=== PATIENT | male | born 1950 | race Caucasian/White ===

== ENCOUNTER 2024-11-04 11:27 | Emergency (ER) | payer OTHER ==
[2024-11-04 11:56] LABS: Absolute Eosinophils 0.2 K/uL (0-0.5); Absolute Lymphocytes (CBC) 2.4 K/uL (0.7-4.9); Absolute Monocytes 0.9 K/uL (0.1-1.3); Basophils % 0.6 % (0-1.3); Eosinophils % 2.2 % (0-4.4); Hematocrit 43.8 % (39.6-49.0); Hemoglobin 14.4 g/dL (13.6-17.9); Lymphocytes % 27.8 % (15.3-44.8); MCH 30.1 pg (27.0-35.0); MCHC 32.8 g/dL (32.0-36.0); MCV 91.9 fL (80-100); MPV 7.9 fL (7.6-11.3); Monocytes % 10.8 % (3.3-12.3); Neutrophils % 58.6 % (41.7-73.7); Platelets 267 thou/uL (152-406); RBC Red Blood Cell Count 4.77 M/uL (4.33-5.43); Red Cell Distribution Width 13.7 % (12.1-15.2)
[2024-11-04] MEDS ORDERED: ENOXAPARIN 100 MG/ML SYR SQ ONE (13:56)
[2024-11-04] MEDS ORDERED: dilTIAZem HCL 25 MG/5 ML VIAL IV ONE (13:57)
--- NOTE | 2024-11-04 15:19 | ER ---
Nurse's Notes [facility] Name: Galindo Alfaro Age: 74 yrs Sex: Male : 1950 Arrival Date: 11/04/2024 Time: 11:27 Bed 6 Private MD: Diagnosis: New onset atrial flutter with supraventricular tachycardia Presentation: 11/04 11:31 Chief complaint: [facility] states[facility] Coronavirus screen: Client ss denies travel out of the [place] in the last 14 days. Ebola Screen: Patient denies exposure to infectious person. Patient denies travel to an Ebola-affected area in the 21 days before illness onset. Initial Sepsis Screen: Does the patient meet any 2 criteria? No. Patient's initial sepsis screen is negative. Does the patient have a suspected source of infection? No. Patient's initial sepsis screen is negative. Risk Assessment: Do you want to hurt yourself or someone else? Patient reports no desire to harm self or others. Onset of symptoms is unknown. 11:31 Method Of Arrival: EMS: [facility] 11:31 Acuity: LUKE 2 11:31 Care prior to arrival: IV initiated. 20 GA, in the left wrist. Triage Assessment: 18:26 General: Behavior is calm, cooperative. tm6 Historical: - Allergies: 11:35 citalopram; ss 11:35 GABAPENTIN; ss 11:35 oxybutynin; ss - Home Meds: 11:32 Losartan 50 mg 1 tab PO DAILY [Active]; methocarbamol 500 mg Oral tablet 1 tab 3 times ss per day [Active]; meloxicam 15 mg oral tablet 1 tab daily [Active]; - PMHx: 11:32 Hypertensive disorder; Henriquez's esophagus; prostate CA; Anxiety; Thyroid nodule; ss Multiple nodules of lung; Ventricular tachycardia; - Immunization history:: Flu vaccine is up to date. - Infectious Disease History:: Denies. - Social history:: Smoking status: Patient denies any tobacco usage or history of. Screenin:37 [facility] ED Fall Risk Assessment (Adult) History of falling in the last 3 months, tm6 including since admission No falls in past 3 months (0 pts) Confusion or Disorientation No (0 pts) Intoxicated or Sedated No (0 pts) Impaired Gait No (0 pts) Mobility Assist Device Used No (0 pt) Altered Elimination No (0 pt) Score/Fall Risk Level 0 - 2 = Low Risk Oriented to surroundings, Maintained a safe environment, Educated pt \T\ family on fall prevention, incl call for assistance when getting out of bed. Abuse screen: Denies threats or abuse. Denies injuries from another. Nutritional screening: No deficits noted. Tuberculosis screening: No symptoms or risk factors identified. Assessment: 12:37 General: Appears in no apparent distress. Pain: Denies pain. Neuro: Level of tm6 Consciousness is awake, alert, obeys commands, Oriented to person, place, time, situation. Cardiovascular: Patient's skin is warm and dry. Rhythm is sinus tachycardia. Respiratory: Airway is patent Respiratory effort is even, unlabored, Respiratory pattern is regular, symmetrical. GI: No signs and/or symptoms were reported involving the gastrointestinal system. Abdomen is round non-distended. : No signs and/or symptoms were reported regarding the genitourinary system. EENT: No signs and/or symptoms were reported regarding the EENT system. Derm: No signs and/or symptoms reported regarding the dermatologic system. Musculoskeletal: No signs and/or symptoms reported regarding the musculoskeletal system. 13:32 Reassessment: Patient and/or family updated on plan of care and expected duration. Pain tm6 level reassessed. Patient is alert, oriented x 3, equal unlabored respirations, skin warm/dry/pink. 14:23 Reassessment: Patient and/or family updated on plan of care and expected duration. Pain tm6 level reassessed. Patient is alert, oriented x 3, equal unlabored respirations, skin warm/dry/pink. 15:41 Reassessment: Patient and/or family updated on plan of care and expected duration. Pain tm6 level reassessed. Patient is alert, oriented x 3, equal unlabored respirations, skin warm/dry/pink. 16:11 Reassessment: report called to [place] [facility], Angelina SELLERS. tm6 18:25 Reassessment: Patient and/or family updated on plan of care and expected duration. Pain tm6 level reassessed. Patient is alert, oriented x 3, equal unlabored respirations, skin warm/dry/pink. report given to EMS. Vital Signs: 11:31 BP 114 / 84; Pulse 149; Resp 19; Temp 98.1(O); Pulse Ox 96% on R/A; Weight 100.7 kg; ss Height 5 ft. 10 in. ; Pain 0/10; 12:36 BP 105 / 66; Pulse 135; Resp 17; Pulse Ox 94% on R/A; MAP 77 mmHg; Pain 0/10; tm6 13:32 BP 113 / 88; Pulse 127; Resp 18; Pulse Ox 95% ; MAP 97 mmHg; Pain 0/10; tm6 14:22 BP 125 / 104; Pulse 103; Pulse Ox 95% on R/A; Pain 0/10; tm6 15:40 BP 145 / 114; Pulse 126; Pulse Ox 94% on R/A; MAP 125 mmHg; Pain 0/10; tm6 16:13 BP 109 / 84; Pulse 126; Pulse Ox 94% on R/A; Pain 0/10; tm6 16:20 BP 99 / 88; Pulse 135; Pulse Ox 95% on R/A; MAP 94 mmHg; Pain 0/10; tm6 16:33 BP 100 / 80; Pulse 135; Pulse Ox 95% on R/A; MAP 88 mmHg; tm6 18:10 BP 129 / 93; Pulse 144; Pulse Ox 95% on R/A; Pain 0/10; tm6 11:31 Body Mass Index 31.85 (100.70 kg, 177.8 cm) ss 11:31 Pain Scale: Adult ss 12:36 Pain Scale: Adult tm6 13:32 Pain Scale: Adult tm6 14:22 Pain Scale: Adult tm6 15:40 Pain Scale: Adult tm6 16:13 Pain Scale: Adult tm6 16:20 Pain Scale: Adult tm6 18:10 Pain Scale: Adult tm6 ED Course: 11:30 Patient arrived in ED. ss 11:32 Raj Recio MD is Attending Physician. sp3 11:32 Triage completed. ss 11:35 Arm band placed on right wrist. ss 11:35 Client placed on continuous cardiac and pulse oximetry monitoring. NIBP monitoring tm6 applied. monitor worker on. Pulse ox on. NIBP on. 11:35 Maintain EMS IV. Dressing intact. Good blood return noted. Site clean \T\ dry. Gauge \T\ tm 6 site: 20g L Hand. Flushed with 10 mL NS. Patient maintains SpO2 saturation greater than 95% on room air. 11:39 Sushil, Tawney, RN is Primary Nurse. tm6 12:37 Patient has correct armband on for positive identification. Placed in gown. Bed in low tm6 position. Call light in reach. Side rails up X 1. Provided Education on: use of call carty. 14:22 EKG done, by ED staff, reviewed by Raj Recio MD. tm6 16:24 1440 [facility] 15[facility] DR. Kristi Nicole [facility] sp 1548 Jose Bernal admin approval to the [facility]. to the ER report # [phone] ext [phone] called [facility] for transfer talked to Michael. 17:18 Inserted saline lock: 20 gauge in right forearm, using aseptic technique. ,using hb aseptic technique. US PLACED Blood collected. Flushed with 10 mL NS. 18:09 Called [facility] to give [facility] results to the ER. sp 18:18 [facility] back talked to Kulwinder in transfer center will fax lab results to sp [phone] he will add to the chart and let provider know new lab results. 18:25 No provider procedures requiring assistance completed. Patient transferred, IV remains tm6 in place. Administered Medications: 11:39 Drug: NS 0.9% IV 1000 ml IV at 1000 ml once; to be given as a bolus over 30 minutes tm6 Route: IV; Rate: 1000 ml; Site: left hand; 13:02 Follow up: Response: No adverse reaction; IV Status: Completed infusion; IV Intake: tm6 1000ml 14:00 Drug: Diltiazem IVP 10 mg IVP once; Over 2 minutes Route: IVP; Site: left hand; tm6 15:19 Follow up: Response: No adverse reaction tm6 14:05 Drug: Diltiazem IVP 10 mg IVP once; Over 2 minutes Route: IVP; Site: left hand; tm6 15:19 Follow up: Response: No adverse reaction tm6 14:21 Drug: Enoxaparin Sub-Q 100 mg Sub-Q once Route: Sub-Q; Site: abdomen; tm6 15:19 Follow up: Response: No adverse reaction tm6 16:53 Not Given (Hemodynamic Parameters): metoprolol5 mg IVP once; Hold for SBP <100 or HR tm6 <60. 18:09 Drug: Aspirin PO Chewable Tablet 324 mg PO once; 81 mg tablets x 4 Route: PO; tm6 18:26 Follow up: Response: No adverse reaction tm6 18:17 Drug: Metoprolol IVP 5 mg IVP once; Hold for SBP <100 or HR <60. Route: IVP; Site: tm6 right forearm; 18:26 Follow up: Response: No adverse reaction tm6 Medication: 12:37 VIS not applicable for this client. tm6 Intake: 13:02 IV: 1000ml; Total: 1000ml. tm6 Outcome: 15:18 ER care complete, transfer ordered by . sp3 18:25 Transferred by [facility]. to [facility] tm6 18:25 Condition: stable 18:25 Instructed on the need for transfer, 18:26 Patient left the ED. tm6 Signatures: Debora Swanson Shelby, RN RN Mar Monae RN RN Raj Recio MD MD sp3 Loreta Ling RN RN tm6 Corrections: (The following items were deleted from the chart) 11:36 11:32 Allergies: No Known Allergies; [facility]
--- NOTE | 2024-11-04 15:19 | EDPHYS ---
Physician Documentation [facility] Name: Galindo Alfaro Age: 74 yrs Sex: Male : 1950 Arrival Date: 11/04/2024 Time: 11:27 Bed 6 Private MD: ED Physician Raj Recio HPI: 11/04 11:56 This 74 yrs old Male presents to ER via EMS with complaints of High heart rate. sp3 11:56 74-year-old male with a history of prostate cancer, Henriquez's esophagus, hypertension sp3 presents to the ED referred from the [facility] for tachycardia and probable dehydration. Patient states he was outside doing work yesterday with very poor p.o. hydration. He is also had decreased urine output. He denies any pain including headache, neck pain, chest pain, shortness of breath, vomiting, diarrhea, rash, bleeding or any other signs or symptoms on ROS at this time.. Historical: - Allergies: 11:35 citalopram; ss 11:35 GABAPENTIN; ss 11:35 oxybutynin; ss - Home Meds: 11:32 Losartan 50 mg 1 tab PO DAILY [Active]; methocarbamol 500 mg Oral tablet 1 tab 3 times ss per day [Active]; meloxicam 15 mg oral tablet 1 tab daily [Active]; - PMHx: 11:32 Hypertensive disorder; Henriquez's esophagus; prostate CA; Anxiety; Thyroid nodule; ss Multiple nodules of lung; Ventricular tachycardia; - Immunization history:: Flu vaccine is up to date. - Infectious Disease History:: Denies. - Social history:: Smoking status: Patient denies any tobacco usage or history of. ROS: 11:59 Constitutional: Negative for fever, chills, and weight loss, Eyes: Negative for injury, sp3 pain, redness, and discharge, ENT: Negative for injury, pain, and discharge, Neck: Negative for injury, pain, and swelling, Respiratory: Negative for shortness of breath, cough, wheezing, and pleuritic chest pain, Abdomen/GI: Negative for abdominal pain, nausea, vomiting, diarrhea, and constipation, Back: Negative for injury and pain, MS/Extremity: Negative for injury and deformity, Skin: Negative for injury, rash, and discoloration, Neuro: Negative for headache, weakness, numbness, tingling, and seizure, Psych: Negative for depression, anxiety, suicide ideation, homicidal ideation, and hallucinations, Allergy/Immunology: Negative for hives, rash, and allergies, Endocrine: Negative for neck swelling, polydipsia, polyuria, polyphagia, and marked weight changes, 11:59 All other systems are negative, Exam: 11:59 Constitutional: This is a well developed, well nourished patient who is awake, alert, sp3 and in no acute distress. Head/Face: Normocephalic, atraumatic. Eyes: Pupils equal round and reactive to light, extra-ocular motions intact. Lids and lashes normal. Conjunctiva and sclera are non-icteric and not injected. Cornea within normal limits. Periorbital areas with no swelling, redness, or edema. Neck: Trachea midline, no thyromegaly or masses palpated, and no cervical lymphadenopathy. Supple, full range of motion without nuchal rigidity, or vertebral point tenderness. No Meningismus. Chest/axilla: Normal chest wall appearance and motion. Nontender with no deformity. No lesions are appreciated. Respiratory: Lungs have equal breath sounds bilaterally, clear to auscultation and percussion. No rales, rhonchi or wheezes noted. No increased work of breathing, no retractions or nasal flaring. Abdomen/GI: Soft, non-tender, with normal bowel sounds. No distension or tympany. No guarding or rebound. No evidence of tenderness throughout. Back: No spinal tenderness. No costovertebral tenderness. Full range of motion. Skin: Warm, dry with normal turgor. Normal color with no rashes, no lesions, and no evidence of cellulitis. MS/ Extremity: Pulses equal, no cyanosis. Neurovascular intact. Full, normal range of motion. Neuro: Awake and alert, GCS 15, oriented to person, place, time, and situation. Cranial nerves II-XII grossly intact. Motor strength 5/5 in all extremities. Sensory grossly intact. Cerebellar exam normal. Normal gait. Psych: Awake, alert, with orientation to person, place and time. Behavior, mood, and affect are within normal limits. 11:59 Cardiovascular: Rate: tachycardic, 11:59 ECG was reviewed by the Attending Physician. EKG demonstrates sinus tachycardia versus atrial flutter with heart rate 147, normal axis, normal QRS nonspecific ST changes obscured by rate related changes. Vital Signs: 11:31 BP 114 / 84; Pulse 149; Resp 19; Temp 98.1(O); Pulse Ox 96% on R/A; Weight 100.7 kg; ss Height 5 ft. 10 in. ; Pain 0/10; 12:36 BP 105 / 66; Pulse 135; Resp 17; Pulse Ox 94% on R/A; MAP 77 mmHg; Pain 0/10; tm6 13:32 BP 113 / 88; Pulse 127; Resp 18; Pulse Ox 95% ; MAP 97 mmHg; Pain 0/10; tm6 14:22 BP 125 / 104; Pulse 103; Pulse Ox 95% on R/A; Pain 0/10; tm6 15:40 BP 145 / 114; Pulse 126; Pulse Ox 94% on R/A; MAP 125 mmHg; Pain 0/10; tm6 16:13 BP 109 / 84; Pulse 126; Pulse Ox 94% on R/A; Pain 0/10; tm6 16:20 BP 99 / 88; Pulse 135; Pulse Ox 95% on R/A; MAP 94 mmHg; Pain 0/10; tm6 16:33 BP 100 / 80; Pulse 135; Pulse Ox 95% on R/A; MAP 88 mmHg; tm6 18:10 BP 129 / 93; Pulse 144; Pulse Ox 95% on R/A; Pain 0/10; tm6 11:31 Body Mass Index 31.85 (100.70 kg, 177.8 cm) ss 11:31 Pain Scale: Adult ss 12:36 Pain Scale: Adult tm6 13:32 Pain Scale: Adult tm6 14:22 Pain Scale: Adult tm6 15:40 Pain Scale: Adult tm6 16:13 Pain Scale: Adult tm6 16:20 Pain Scale: Adult tm6 18:10 Pain Scale: Adult tm6 MDM: 11:32 Medical Screening Exam initiated sp3 12:00 Data reviewed: vital signs, nurses notes, lab test result(s), EKG, radiologic studies. sp3 ED course: 74-year-old male [facility]. Differential diagnosis includes dehydration related sinus tachycardia versus cardiac arrhythmia atrial flutter. We will start by giving IV fluids and monitor blood pressure followed by AV arlyn blocking agent if not improved. Disposition pending workup and patient course.. 14:14 ED course: After IV fluids, heart rate still elevated. Cardizem given 2 doses which sp3 dropped heart rate to 108 with clear underlying atrial flutter. Lovenox was given prior to Cardizem. Patient will be transferred to [facility] as per his request and if no availability there we will admit here with cardiology consult.. 17:55 ED course: Troponin mildly bumped at 81. Likely rate related. Will add ASA.. sp3 11/04 11:32 Order name: Basic Metabolic Panel; Complete Time: 18:06 sp3 11/04 11:32 Order name: CBC with Diff; Complete Time: 15:15 sp3 11/04 11:32 Order name: LFT's; Complete Time: 18:06 sp3 11/04 11:32 Order name: Magnesium; Complete Time: 18:06 sp3 11/04 11:32 Order name: NT PRO-BNP; Complete Time: 18:06 sp3 11/04 11:32 Order name: Troponin HS; Complete Time: 18:06 sp3 11/04 11:32 Order name: Lactate w/ 2H reflex if indic.; Complete Time: 15:15 sp3 11/04 11:32 Order name: Cardiac monitoring; Complete Time: 11:39 sp3 11/04 11:32 Order name: EKG - Nurse/Tech; Complete Time: 11:43 sp3 11/04 11:32 Order name: IV Saline Lock; Complete Time: 11:39 sp3 11/04 11:32 Order name: Labs collected and sent; Complete Time: 11:51 sp3 11/04 11:32 Order name: O2 Per Protocol; Complete Time: 11:39 sp3 11/04 11:32 Order name: O2 Sat Monitoring; Complete Time: 11:39 sp3 11/04 13:30 Order name: EKG - Nurse/Tech; Complete Time: 14:21 sp3 Administered Medications: 11:39 Drug: NS 0.9% IV 1000 ml IV at 1000 ml once; to be given as a bolus over 30 minutes tm6 Route: IV; Rate: 1000 ml; Site: left hand; 13:02 Follow up: Response: No adverse reaction; IV Status: Completed infusion; IV Intake: tm6 1000ml 14:00 Drug: Diltiazem IVP 10 mg IVP once; Over 2 minutes Route: IVP; Site: left hand; tm6 15:19 Follow up: Response: No adverse reaction tm6 14:05 Drug: Diltiazem IVP 10 mg IVP once; Over 2 minutes Route: IVP; Site: left hand; tm6 15:19 Follow up: Response: No adverse reaction tm6 14:21 Drug: Enoxaparin Sub-Q 100 mg Sub-Q once Route: Sub-Q; Site: abdomen; tm6 15:19 Follow up: Response: No adverse reaction tm6 16:53 Not Given (Hemodynamic Parameters): metoprolol5 mg IVP once; Hold for SBP <100 or HR tm6 <60. 18:09 Drug: Aspirin PO Chewable Tablet 324 mg PO once; 81 mg tablets x 4 Route: PO; tm6 18:26 Follow up: Response: No adverse reaction tm6 18:17 Drug: Metoprolol IVP 5 mg IVP once; Hold for SBP <100 or HR <60. Route: IVP; Site: tm6 right forearm; 18:26 Follow up: Response: No adverse reaction tm6 Disposition Summary: 11/04/24 15:18 Transfer Ordered Notes: Transfer [facility] sp3 Reason: Higher level of care sp3 Condition: Stable sp3 Problem: new sp3 Symptoms: have worsened sp3 Accepting Physician: TBD inpatient team at [facility](11/04/24 18:26) tm6 Diagnosis - New onset atrial flutter with supraventricular tachycardia sp3 Forms: - Medication Reconciliation Form sp3 - SBAR form sp3 Critical care time excluding procedures: 14:20 Critical care time: Bedside Care: 15 minutes, Consultation: 10 minutes, Family sp3 Intervention: 10 minutes. Total time: 35 minutes Signatures: Dispatcher [employer] EDMS Evelyn Moncada, MARLO RN Raj Recio MD MD sp3 Loreta Ling RN RN tm6 Corrections: (The following items were deleted from the chart) 11:33 11:33 BASIC METABOLIC PANEL+C.LAB.BRZ ordered. EDMS EDMS 11:33 11:33 CBC+H.LAB.BRZ ordered. EDMS EDMS 11:33 11:33 HEPATIC FUNCTION+C.LAB.BRZ ordered. EDMS EDMS 11:33 11:33 MAGNESIUM+C.LAB.BRZ ordered. EDMS EDMS 11:33 11:33 PROBNP+C.LAB.BRZ ordered. EDMS EDMS 11:33 11:33 Troponin High Sensitivity+C.LAB.BRZ ordered. EDMS EDMS 11:33 11:33 LACTATE+C.LAB.BRZ ordered. EDMS EDMS 11:36 11:32 Allergies: No Known Allergies; ss 18:26 15:18 TBD inpatient team at [facility] sp3 tm6
[2024-11-04] MEDS ORDERED: METOPROLOL TARTRATE 5 MG/5 ML INJ IV ONE (16:16)
[2024-11-04 17:45] LABS: ALT/SGPT 25 U/L (16-61); AST/SGOT 16 U/L (15-37); Albumin 3.5 g/dL (3.4-5.0); Alkaline Phosphatase 61 U/L (45-117); BUN Blood Urea Nitrogen 22 mg/dL (7-18); Bicarbonate 21 mEq/L (21-32); Bilirubin Total 0.5 mg/dL (0.2-1.0); Globulin 3.4 g/dL (2.3-3.5); Glomerular Filtration Rate 56 ml/min (=/>90); Glucose Level 93 mg/dL (74-106); Magnesium 2.1 mg/dL (1.6-2.4); NT PRO-BNP 1156 pg/mL (<450); Protein, Total 6.9 g/dL (6.4-8.2); Sodium Level 140 mEq/L (136-145)
[2024-11-04 17:49] LABS: Bilirubin Direct < 0.2 mg/dL (0-0.2); Bilirubin Indirect, Calculated 0.3 mg/dL (0.2-0.8)
[2024-11-04 17:50] LABS: Troponin High Sensitivity 81.1 pg/mL (<58.9)
[2024-11-04] MEDS ORDERED: ASPIRIN 81 MG CHEWABLE TABLET ONE (17:58)
[2024-11-04 21:12] VITALS: TEMP 98.1
[2024-11-04 21:33] VITALS: O2SAT 95
[2024-11-04 21:35] VITALS: BP 129/93
== END 2024-11-04 18:26 ==
LOC: ER 11:27
DX: I48.92 Unspecified atrial flutter (principal); I47.10 Supraventricular tachycardia, unspecified; I10 Essential (primary) hypertension; Z88.8 Allergy status to other drugs, medicaments and biological substances
CPT/HCPCS: 85025; 80048; 36415; 83735; 80076; 83605; 84484; 83880; 96372; 99285; J1650